=== PATIENT | male | born 1980 | race Caucasian/White ===

== ENCOUNTER 2018-03-26 17:37 | Emergency (ER) | payer OTHER ==
[~2018-03-26] VITALS: Ht 180.3 cm; Wt 104.3 kg
[~2018-03-26 17:37] MED LIST: ALLEGRA ALLERG180 MG; FLEXERIL PO; IBUPROFEN 600600 M1 PO; IBUPROFEN 800800 MG PO; MULTI VITAMIN1 EACH PO; NORCO 5-325 TA1 EACH PO
[2018-03-26] MEDS ORDERED: FLONASE 0.05%50 MCG NASAL (17:44)
[2018-03-26] MEDS ORDERED: TROKENDI XR25 MG PO (17:44)
[2018-03-26] MEDS ORDERED: CLARITIN10 MG PO (17:44)
[2018-03-26] MEDS ORDERED: IBUPROFEN 600600 M1 PO (20:16)
[2018-03-26] MEDS ORDERED: FLEXERIL PO (20:16)
[2018-03-26 20:31] VITALS: BP 154/95
== END 2018-03-26 20:31 | disposition home or self-care (01) ==
LOC: ER 17:37
DX: S16.1XXA Strain of muscle, fascia and tendon at neck level, initial encounter (principal); S39.012A Strain of muscle, fascia and tendon of lower back, initial encounter; S80.02XA Contusion of left knee, initial encounter; S60.312A Abrasion of left thumb, initial encounter; R51 Headache; F17.210 Nicotine dependence, cigarettes, uncomplicated; V49.49XA Driver injured in collision with other motor vehicles in traffic accident, initial encounter; Y93.89 Activity, other specified; Y92.410 Unspecified street and highway as the place of occurrence of the external cause; Y99.8 Other external cause status